=== PATIENT | female | born 1975 | race Caucasian/White ===

== ENCOUNTER 2016-10-16 17:32 | Emergency (ER) | payer MEDICAID ==
[~2016-10-16] VITALS: Ht 170.2 cm; Wt 79.4 kg
[2016-10-16 17:40] VITALS: BP 137/89
--- NOTE | 2016-10-16 17:50 | NUR ---
41/F BIB SELF C/O LACERATION LEFT 3RD FINGER WITH PAIN 8/10.HX; ANXIETY.RX; CLONAZEPAM 0.5MG HS.AAOX4 WITH EVEN AND STEADY GAIT; LUNGS CLEAR BL; HR EVEN AND REGULAR;PATIENT STATES PAIN OF 9/10 AT THIS TIME; PATIENT POSITIONED FOR COMFORT; HOB ELEVATED; BEDRAILS UP X2; BED DOWN. ER MD MADE AWARE OF PT STATUS.
--- NOTE | 2016-10-16 18:05 | NUR ---
AQUATICS MANAGER YAZIDISM APPLIED STERILE STRIP TP L MIDDLE FINGER. PT TOLERATED PROCEDUR WELL. Addendum: 10/16/16 at 1807 by [email or web address] PT STS ;DON'T WANT PAIN MED AT THIS TIME . PAIN 06/14
[2016-10-16] MEDS ORDERED: IBUPROFEN 800 MG TAB PO ONE (18:10)
--- NOTE | 2016-10-16 18:14 | NUR ---
SPLINT L MIDDLE FINGER BY ESTEFANÍA PARDO.
[2016-10-16 18:18] VITALS: BP 123/79
[2016-10-17] MEDS ORDERED: DRY DRESSING TP SCH (13:00)
== END 2016-10-16 18:16 | disposition home or self-care (01) ==
LOC: MED 17:32
DX: S61.213A Laceration without foreign body of left middle finger without damage to nail, initial encounter (principal); Z88.2 Allergy status to sulfonamides; W25.XXXA Contact with sharp glass, initial encounter; Y93.89 Activity, other specified; Y92.89 Other specified places as the place of occurrence of the external cause; Y99.8 Other external cause status
CPT/HCPCS: 90471; 90715; 99283

== ENCOUNTER 2017-03-17 22:29 | Emergency (ER) | payer MEDICAID ==
[~2017-03-17] VITALS: Ht 170.2 cm; Wt 81.6 kg
[2017-03-17 22:33] VITALS: BP 127/80
--- NOTE | 2017-03-17 22:43 | NUR ---
PT TAKEN TO BED 4
--- NOTE | 2017-03-17 22:54 | NUR ---
42 Y/O F W/C/O BURNING PAIN WITH URINATION, LOWER BACK PAIN, NAUSEA AND CHILLS X 5 DAYS. NO OTHER S/S OF DISTRESS NOTED. ER MD MADE AWARE.
--- NOTE | 2017-03-17 23:05 | NUR ---
Patient being evaluated by physician at bedside.
[2017-03-17] MEDS ORDERED: ONDANSETRON 4 MG ODT PO ONE (23:10)
[2017-03-17 23:32] VITALS: BP 133/93
--- NOTE | 2017-03-17 23:32 | NUR ---
Patient discharged with v/s stable. Written and verbal after care instructions given and explained. Patient alert, oriented and verbalized understanding of instructions. Ambulatory with steady gait. All questions addressed prior to discharge. ID band removed. Patient advised to follow up with PMD. Rx of CIPRO, ZOFRAN, MOTRIN, AND PYRIDIUM given. Patient educated on indication of medication including possible reaction and side effects. Opportunity to ask questions provided and answered.
== END 2017-03-17 23:32 | disposition home or self-care (01) ==
LOC: MED 22:29
DX: N39.0 Urinary tract infection, site not specified (principal); Z88.2 Allergy status to sulfonamides
CPT/HCPCS: 81002; 81025; 99283; S0119

== ENCOUNTER 2017-03-23 18:39 | Emergency (ER) | payer MEDICAID ==
[~2017-03-23] VITALS: Ht 170.2 cm; Wt 79.4 kg
[2017-03-23 18:42] VITALS: BP 135/73
[2017-03-23 20:38] LABS: APPEARANCE,URINE CLEAR (CLEAR); BILIRUBIN,URINE NEGATIVE (NEGATIVE); BLOOD, URINE NEGATIVE (NEGATIVE); COLOR,URINE YELLOW (YELLOW); LEUKOCYTE ESTERASE ,URINE NEGATIVE (NEGATIVE); NITRITE, URINE NEGATIVE (NEGATIVE); UGLUCOSE NEGATIVE (NEGATIVE)
[2017-03-23 20:48] LABS: ANION GAP 13.6 (8-16); CARBON DIOXIDE 25.6 mmol/L (21-32); CREATININE 0.8 mg/dL (0.6-1.3); POTASSIUM 4.2 mmol/L (3.5-5.1)
[2017-03-23 20:55] LABS: ALBUMIN 3.8 g/dL (3.4-5.0); BASOPHILS # (AUTO) 0.2 K/uL (0.00-0.22); EOSINOPHILS # (AUTO) 0.1 K/uL (0-0.4); HEMATOCRIT 42.8 % (36-48); HEMOGLOBIN 13.9 g/dL (12.0-16.0); LYMPHOCYTES # (AUTO) 2.6 K/uL (2.5-16.5); MEAN CORPUSCULAR HEMOGLOBIN 29 pg (27-31); MEAN CORPUSCULAR HGB CONC 33 g/dL (33-37); MEAN CORPUSCULAR VOLUME 91 fL (80-94); MONOCYTES # (AUTO) 0.8 K/uL (0.8-1.0); NEUTROPHILS # (AUTO) 6.1 K/uL (1.8-7.7); PLATELET COUNT (AUTO) 204 K/uL (140-450); RED BLOOD CELL COUNT(AUTO) 4.72 MIL/uL (4.20-5.40); RED CELL DISTRIBUTION WIDTH 12.4 % (11.6-13.7); TOTAL BILIRUBIN 0.4 mg/dL (0.0-1.0); WHITE BLOOD COUNT (AUTO) 9.8 K/uL (4.8-10.8)
[2017-03-23 22:00] VITALS: BP 129/85
== END 2017-03-23 22:00 | disposition home or self-care (01) ==
LOC: MED 18:39
DX: K59.00 Constipation, unspecified (principal); Z88.2 Allergy status to sulfonamides
CPT/HCPCS: 36415; 74176; 76705; 80053; 81003; 81025; 83690; 85025; 99285; Q0092

== ENCOUNTER 2017-07-17 21:00 | Emergency (ER) | payer MEDICAID ==
[~2017-07-17] VITALS: Ht 167.6 cm; Wt 83.6 kg
[2017-07-17 21:04] VITALS: BP 136/87
[2017-07-17] MEDS ORDERED: NACL 0.9% 1,000 ML IV ONE ×2 (21:56→22:00)
[2017-07-17] MEDS ORDERED: KETOROLAC 30 MG/ML VIAL IVP ONE (22:00)
[2017-07-17 22:13] LABS: BASOPHILS # (AUTO) 0.1 K/uL (0.00-0.22); BASOPHILS % (AUTO) 0.7 % (0.0-2.0); EOSINOPHILS # (AUTO) 0.4 K/uL (0-0.4); HEMOGLOBIN 13.4 g/dL (12.0-16.0); LYMPHOCYTES # (AUTO) 3.8 K/uL (2.5-16.5); LYMPHOCYTES % (AUTO) 32.6 % (20.5-51.1); MEAN CORPUSCULAR HEMOGLOBIN 30 pg (27-31); MEAN CORPUSCULAR HGB CONC 33 g/dL (33-37); MEAN CORPUSCULAR VOLUME 90.1 fL (80-94); MONOCYTES # (AUTO) 0.8 K/uL (0.8-1.0); MONOCYTES % (AUTO) 7.1 % (1.7-9.3); NEUTROPHILS # (AUTO) 6.6 K/uL (1.8-7.7); NEUTROPHILS % (AUTO) 56.6 % (42.2-75.2); PLATELET COUNT (AUTO) 207 K/uL (140-450); RED BLOOD CELL COUNT(AUTO) 4.55 MIL/uL (4.20-5.40); RED CELL DISTRIBUTION WIDTH 13.9 % (11.6-13.7); WHITE BLOOD COUNT (AUTO) 11.8 K/uL (4.8-10.8)
[2017-07-17 22:21] LABS: ANION GAP 10.6 (8-16); CARBON DIOXIDE 27.4 mmol/L (21-32); CREATININE 0.9 mg/dL (0.6-1.3)
[2017-07-17 22:28] LABS: ALBUMIN 3.7 g/dL (3.4-5.0); TOTAL BILIRUBIN 0.4 mg/dL (0.0-1.0)
[2017-07-17 22:32] LABS: PROTHROMBIN TIME 10.2 secs (10.8-13.4)
[2017-07-17 23:51] VITALS: BP 137/81
== END 2017-07-17 23:51 | disposition home or self-care (01) ==
LOC: MED 21:00
DX: S80.861A Insect bite (nonvenomous), right lower leg, initial encounter (principal); S80.862A Insect bite (nonvenomous), left lower leg, initial encounter; Z88.2 Allergy status to sulfonamides; W57.XXXA Bitten or stung by nonvenomous insect and other nonvenomous arthropods, initial encounter; Y93.89 Activity, other specified; Y99.8 Other external cause status; Y92.89 Other specified places as the place of occurrence of the external cause
CPT/HCPCS: 36415; 80053; 85025; 85610; 85730; 86790; 96374; 99284; J1885

== ENCOUNTER 2018-02-03 14:28 | Emergency (ER) | payer MEDICAID ==
[~2018-02-03] VITALS: Ht 167.6 cm; Wt 84.4 kg
[2018-02-03 14:38] VITALS: BP 126/71
--- NOTE | 2018-02-03 15:07 | NUR ---
Patient called, no answer.
--- NOTE | 2018-02-03 17:25 | NUR ---
patient called from lobby no answer patient is considered lwbs dr nolasco notified.
== END 2018-02-03 16:46 | disposition left against medical advice (07) ==
LOC: MED 14:28
DX: R51 Headache (principal); Z53.21 Procedure and treatment not carried out due to patient leaving prior to being seen by health care provider

== ENCOUNTER 2018-05-31 19:07 | Emergency (ER) | payer MEDICAID ==
[~2018-05-31] VITALS: Ht 170.2 cm; Wt 76.7 kg
[2018-05-31 19:15] VITALS: BP 141/74
--- NOTE | 2018-05-31 19:17 | NUR ---
TO LOBBY A/W BED, AMBULATORY
--- NOTE | 2018-05-31 20:43 | NUR ---
PT AMBULATED TO ER BED 2
--- NOTE | 2018-05-31 20:47 | NUR ---
PT PRESENTS TO ED WITH BILAT UPPER EXTREMITY PAIN 8/ X12 HRS. DENIES INJURY. NO DEFORMITIES NOTED. CMS INTACT BILAT UPPER EXTREMITIES. NO NUMBNESS/TINGLING. STATES PAIN IS THE WORST IT HAS BEEN OVER TWO WEEKS. VSS. A&OX4. POSITIONED IN BED FOR COMFORT. X1 SIDE RAIL UP. ER MD AWARE. CONTINUE TO MONITOR.
[2018-05-31 21:50] VITALS: BP 138/77
--- NOTE | 2018-05-31 21:50 | NUR ---
DISCHARGE PAPERS GIVEN TO PATIENT. 05/15 PAIN BUT TOLLERABLE. CMS INTACT BILAT UPPER EXTREMITIES. VSS. RX OF ROBAXIN AND TYLENOL GIVEN. SIDE EFFECTS EXPLAINED. INSTRUCTED TO F/U WITH PCP AND WHEN TO RETURN TO ED. VERBALIZED UNDERSTANDING OF DC INSTUCTIONS. ALL QUESTIONS ANSWERED.
== END 2018-05-31 21:50 | disposition home or self-care (01) ==
LOC: MED 19:07
DX: M54.12 Radiculopathy, cervical region (principal); Z88.2 Allergy status to sulfonamides
CPT/HCPCS: 72040; 81002; 81025; 99283

== ENCOUNTER 2018-11-13 14:22 | Emergency (ER) | payer MEDICAID ==
[~2018-11-13] VITALS: Ht 170.2 cm; Wt 75.7 kg
[2018-11-13 14:37] VITALS: BP 120/72
--- NOTE | 2018-11-13 14:55 | NUR ---
43/F BIB SELF C/O DIZZINESS/HEADACHE/BLURRED VISION SINCE YESTERDAY. NO MED HX. PATIENT STATES PAIN OF 8/10 AT THIS TIME; PATIENT POSITIONED FOR COMFORT; HOB ELEVATED; BEDRAILS UP X1; BED DOWN. ER MD MADE AWARE OF PT STATUS.
[2018-11-13] MEDS ORDERED: MORPHINE SULFATE 4 MG/ML SYR IVP ONE (15:30)
--- NOTE | 2018-11-13 16:03 | NUR ---
X RAY AT BEDSIDE
[2018-11-13 16:15] LABS: APPEARANCE,URINE CLEAR (CLEAR); BILIRUBIN,URINE NEGATIVE (NEGATIVE); BLOOD, URINE 3+ (NEGATIVE); COLOR,URINE YELLOW (YELLOW); LEUKOCYTE ESTERASE ,URINE NEGATIVE (NEGATIVE); NITRITE, URINE NEGATIVE (NEGATIVE); UGLUCOSE NEGATIVE (NEGATIVE)
[2018-11-13 16:23] LABS: BARBITURATE, URINE NEGATIVE ng/ml (NEG <=200); BENZODIAZEPINE, URINE NEGATIVE ng/mL (NEG <=200); CANNABINOID, URINE NEGATIVE ng/mL (NEG <=50); COCAINE, URINE NEGATIVE ng/mL (NEG <=300); OPIATE, URINE NEGATIVE ng/mL (NEG <=2000); PHENCYCLIDINE SCREEN,URINE NEGATIVE ng/mL (NEG <=25)
[2018-11-13 16:29] LABS: BASOPHILS % (AUTO) 0.5 % (0.0-2.0); HEMATOCRIT 40.2 % (36-48); HEMOGLOBIN 13.2 g/dL (12.0-16.0); LYMPHOCYTES # (AUTO) 0.9 K/uL (2.5-16.5); LYMPHOCYTES % (AUTO) 9.4 % (20.5-51.1); MEAN CORPUSCULAR HEMOGLOBIN 30 pg (27-31); MEAN CORPUSCULAR HGB CONC 33 g/dL (33-37); MEAN CORPUSCULAR VOLUME 92.1 fL (80-94); MONOCYTES # (AUTO) 0.1 K/uL (0.8-1.0); MONOCYTES % (AUTO) 1.3 % (1.7-9.3); NEUTROPHILS # (AUTO) 8.8 K/uL (1.8-7.7); NEUTROPHILS % (AUTO) 88.8 % (42.2-75.2); PLATELET COUNT (AUTO) 206 K/uL (140-450); RED BLOOD CELL COUNT(AUTO) 4.36 MIL/uL (4.20-5.40); RED CELL DISTRIBUTION WIDTH 13.3 % (11.6-13.7); WHITE BLOOD COUNT (AUTO) 9.9 K/uL (4.8-10.8)
[2018-11-13] MEDS ORDERED: MECLIZINE 25 MG TAB PO ONE (16:30)
[2018-11-13 16:57] LABS: RBC,URINE 0-5 /HPF (0-5); WBC,URINE NONE SEEN /HPF (0-5)
[2018-11-13 16:57] LABS: PROTHROMBIN TIME 9.4 secs (10.8-13.4)
[2018-11-13 17:17] LABS: ANION GAP 13.7 (8-16); CARBON DIOXIDE 26.2 mmol/L (21-32); CREATININE 0.7 mg/dL (0.6-1.3); POTASSIUM 4.9 mmol/L (3.5-5.1); TOTAL BILIRUBIN 0.4 mg/dL (0.0-1.0)
[2018-11-13 17:18] LABS: ALBUMIN 3.8 g/dL (3.4-5.0)
--- NOTE | 2018-11-13 17:38 | NUR ---
WALKED PT FROM ONE END OF THE ER TO THE OTHER. PT DEMONSTRATES ABILITY TO WALK COHERENTLY WITHOUT STUMBLING OR SWAYING. PT IS ABLE TO AMBULATE IN A STRAIGHT LINE. PT STATES SHE DOES NOT FEEL DIZZY WHILE AMBULATING AND IS ABLE TO AMBULATE WITHOUT ASSISTANCE. PT RETURNED TO ROOM AND PLACED IN BED.
[2018-11-13 18:32] VITALS: BP 119/70
--- NOTE | 2018-11-13 18:33 | NUR ---
Patient discharged with v/s stable. Written and verbal after care instructions given and explained. Patient alert, oriented and verbalized understanding of instructions. Ambulatory with steady gait. All questions addressed prior to discharge. ID band removed. Patient advised to follow up with PMD. Rx of IBUPRFEN & MECLIZINE given. Patient educated on indication of medication including possible reaction and side effects. Opportunity to ask questions provided and answered.
== END 2018-11-13 18:33 | disposition home or self-care (01) ==
LOC: MED 14:22
DX: R51 Headache (principal); R42 Dizziness and giddiness; R11.0 Nausea; Z88.2 Allergy status to sulfonamides
CPT/HCPCS: 36415; 70450; 71045; 80053; 80305; 81001; 81025; 84484; 85025; 85610; 85730; 86886; 86900; 86901; 93005; 99284; J8597; Q0092

== ENCOUNTER 2019-06-08 14:50 | Emergency (ER) | payer MEDICAID ==
[~2019-06-08] VITALS: Ht 170.2 cm; Wt 70.3 kg
[2019-06-08 14:54] VITALS: BP 141/78
--- NOTE | 2019-06-08 15:03 | NUR ---
44/F C/O HEADACHE X 5 DAYS ACCOMPANIED BY N/V, PHOTOPHOBIA, PHONOPHOBIA, TINNITUS. STATES SLIGHT DIZZINESS AND ALSO BLURRY VISION. PT STATES HE GETS HEADACHES OCCASIONALLY BUT HAS NEVER HAD ONE LIKE THIS BEFORE. HEADACHE HAS BEEN CONSTANT AND SEVERE, PAIN THROBBING. DENIES FEVER. LMP 2 WEEKS AGO. DENIES RELIEVING FACTORS. HX- DENIES Addendum: 06/08/19 at 1507 by RELL PT STATES NAUSEA BUT DENIES VOMITING. DENIES UNILATERAL WEAKNESS.
--- NOTE | 2019-06-08 15:17 | NUR ---
DR. BLANCO EVALUATING PT AT BEDSIDE
[2019-06-08] MEDS ORDERED: KETOROLAC 30 MG/ML VIAL IVP ONE (15:25)
[2019-06-08] MEDS ORDERED: NACL 0.9% 1,000 ML IV ONE (15:25)
[2019-06-08] MEDS ORDERED: PROCHLORPERAZINE 10 MG/2 ML VIAL IVP ONE (15:25)
--- NOTE | 2019-06-08 15:52 | NUR ---
PT AMB TO AND BACK FROM BATHROOM STEADY GAIT
--- NOTE | 2019-06-08 15:53 | NUR ---
COTTON FARMER AT BEDSIDE. PT TO CT SCAN VIA W/C.
--- NOTE | 2019-06-08 16:06 | NUR ---
PT BACK FROM CT SCAN VIA W/C. CONNECTED BACK TO IV NS.
--- NOTE | 2019-06-08 16:08 | NUR ---
PT STATES SOME RELIEF OF SARAH PAIN.
--- NOTE | 2019-06-08 17:15 | NUR ---
DR. BLANCO SPEAKING WITH PATIENT AT BEDSIDE
--- NOTE | 2019-06-08 17:30 | NUR ---
Patient discharged with v/s stable. Written and verbal after care instructions given and explained. Patient alert, oriented and verbalized understanding of instructions. Ambulatory with steady gait. All questions addressed prior to discharge. ID band removed. Patient advised to follow up with PMD. Rx of NAPROXEN, BENADRYL, REGLAN given. Patient educated on indication of medication including possible reaction and side effects. Opportunity to ask questions provided and answered.
[2019-06-08 17:31] VITALS: BP 103/55
== END 2019-06-08 17:30 | disposition home or self-care (01) ==
LOC: MED 14:50
DX: G43.909 Migraine, unspecified, not intractable, without status migrainosus (principal); R11.2 Nausea with vomiting, unspecified; Z88.2 Allergy status to sulfonamides
CPT/HCPCS: 70450; 81002; 81025; 96361; 96374; 96375; 99284; J0780; J1885; J7030

== ENCOUNTER 2019-07-06 20:09 | Emergency (ER) | payer MEDICAID ==
[~2019-07-06] VITALS: Ht 170.2 cm; Wt 72.6 kg
[2019-07-06 20:20] VITALS: BP 124/84
--- NOTE | 2019-07-06 20:22 | NUR ---
PT TAKEN TO BED 6
--- NOTE | 2019-07-06 20:30 | NUR ---
44 Y/O FEMALE PRESENTS TO ER WITH C/O THROAT, VAGINAL/ANAL THRUSH X 3 WEEKS. 8/10 PAIN. PT STATES HER PCP GAVE HER AUGMENTIN FOR CHRONIC SINUSITIS THAT PT BELIEVES TURNED INTO THRUSH, AND NOW INHABITS THROAT, AND VAGINAL/ANAL AREA. PT DENIES FEVER, NAUSEA, VOMITING, DIARRHEA, SOB, COUGH. R/R EQUAL AND UNLABORED. VSS. ORAL MUCOSA PINK, AND MOIST. NO WHITE PAPULES NOTED ON TONGUE/ORAL CAVITY. PT PLACED IN GOWN, SIDE RAIL X 1, BED IN LOW POSITION. WILL CONTINUE TO MONITOR. DENIES PMH ALLERGIES: SULFA
[2019-07-06 21:04] LABS: APPEARANCE,URINE HAZY (CLEAR); BILIRUBIN,URINE NEGATIVE (NEGATIVE); BLOOD, URINE NEGATIVE (NEGATIVE); COLOR,URINE YELLOW (YELLOW); LEUKOCYTE ESTERASE ,URINE NEGATIVE (NEGATIVE); NITRITE, URINE NEGATIVE (NEGATIVE); UGLUCOSE NEGATIVE (NEGATIVE)
[2019-07-06 21:05] LABS: BASOPHILS # (AUTO) 0.1 K/uL (0.00-0.22); EOSINOPHILS # (AUTO) 0.1 K/uL (0-0.4); EOSINOPHILS % (AUTO) 1.1 % (0.0-4.0); HEMATOCRIT 38.7 % (36-48); HEMOGLOBIN 12.8 g/dL (12.0-16.0); LYMPHOCYTES # (AUTO) 2.7 K/uL (2.5-16.5); LYMPHOCYTES % (AUTO) 20.7 % (20.5-51.1); MEAN CORPUSCULAR HEMOGLOBIN 30 pg (27-31); MEAN CORPUSCULAR HGB CONC 33 g/dL (33-37); MEAN CORPUSCULAR VOLUME 91.7 fL (80-94); MONOCYTES # (AUTO) 0.8 K/uL (0.8-1.0); MONOCYTES % (AUTO) 5.9 % (1.7-9.3); NEUTROPHILS # (AUTO) 9.2 K/uL (1.8-7.7); NEUTROPHILS % (AUTO) 71.3 % (42.2-75.2); PLATELET COUNT (AUTO) 235 K/uL (140-450); RED BLOOD CELL COUNT(AUTO) 4.22 MIL/uL (4.20-5.40); RED CELL DISTRIBUTION WIDTH 13.7 % (11.6-13.7); WHITE BLOOD COUNT (AUTO) 12.9 K/uL (4.8-10.8)
[2019-07-06 21:21] LABS: RBC,URINE 0-5 /HPF (0-5); WBC,URINE 0-5 /HPF (0-5)
[2019-07-06 21:22] LABS: ALBUMIN 3.4 g/dL (3.4-5.0); CREATININE 0.8 mg/dL (0.6-1.3); TOTAL BILIRUBIN 0.4 mg/dL (0.0-1.0)
[2019-07-06 21:29] LABS: ANION GAP 12.1 (8-16); CARBON DIOXIDE 29.1 mmol/L (21-32); POTASSIUM 4.2 mmol/L (3.5-5.1)
[2019-07-06 21:34] LABS: BARBITURATE, URINE NEGATIVE ng/ml (NEG <=200); BENZODIAZEPINE, URINE NEGATIVE ng/mL (NEG <=200); CANNABINOID, URINE NEGATIVE ng/mL (NEG <=50); COCAINE, URINE NEGATIVE ng/mL (NEG <=300); OPIATE, URINE NEGATIVE ng/mL (NEG <=2000); PHENCYCLIDINE SCREEN,URINE NEGATIVE ng/mL (NEG <=25)
--- NOTE | 2019-07-06 21:39 | NUR ---
Dr. Maya examining patient.
[2019-07-06 21:43] VITALS: BP 124/84
--- NOTE | 2019-07-06 21:44 | NUR ---
Patient discharged BY DR. CORREA with v/s stable. Written and verbal after care instructions given and explained. Patient verbalized understanding. Ambulatory with steady gait. All questions addressed BY DR. CORREA prior to discharge. Advised to follow up with PMD.
== END 2019-07-06 21:44 | disposition home or self-care (01) ==
LOC: MED 20:09
DX: R53.1 Weakness (principal); R30.0 Dysuria; N89.8 Other specified noninflammatory disorders of vagina; G43.909 Migraine, unspecified, not intractable, without status migrainosus; Z88.2 Allergy status to sulfonamides
CPT/HCPCS: 36415; 80053; 80305; 81001; 85025; 99283

== ENCOUNTER 2019-07-15 22:33 | Emergency (ER) | payer MEDICAID ==
[~2019-07-15] VITALS: Ht 165.1 cm; Wt 70.3 kg
[2019-07-15 22:44] VITALS: BP 141/77
--- NOTE | 2019-07-15 22:46 | NUR ---
PT TAKEN TO CHAIR A
--- NOTE | 2019-07-15 22:46 | NUR ---
44/F presents ambulatory to ED, c/o resolved tongue swelling at 1999 after taking rx diflucan PO. Pt took benadryl at 2100. No angioedema noted at this time. Pt awake and alert, skin normal color warm and dry, rr even and unlabored. Denies med hx
[2019-07-15] MEDS ORDERED: methylPREDNISolone SS 125 MG/2 ML VIAL IM ONE (23:00)
--- NOTE | 2019-07-15 23:07 | NUR ---
Patient discharged with v/s stable. Written and verbal after care instructions given and explained. Patient alert, oriented and verbalized understanding of instructions. Ambulatory with steady gait. All questions addressed prior to discharge. ID band removed. Patient advised to follow up with PMD. Rx of BENADRYL given. Patient educated on indication of medication including possible reaction and side effects. Opportunity to ask questions provided and answered.
== END 2019-07-15 23:07 | disposition home or self-care (01) ==
LOC: MED 22:33
DX: T78.40XA Allergy, unspecified, initial encounter (principal); K13.29 Other disturbances of oral epithelium, including tongue; G43.909 Migraine, unspecified, not intractable, without status migrainosus; Z88.2 Allergy status to sulfonamides; X58.XXXA Exposure to other specified factors, initial encounter
CPT/HCPCS: 96372; 99283; J2930

== ENCOUNTER 2019-09-25 17:05 | Emergency (ER) | payer MEDICAID ==
[~2019-09-25] VITALS: Ht 170.2 cm; Wt 68.0 kg
[2019-09-25 17:07] VITALS: BP 123/76
--- NOTE | 2019-09-25 17:13 | NUR ---
AMBULATED TO BED 5
--- NOTE | 2019-09-25 17:15 | NUR ---
C/O VAGINAL DISCOMFORT AND ORAL THRUSH X 3 DAYS AGO. PT REPORTS SHE IS CURRENTLY TAKING ANTIBIOTICS FOR AN EAR INFECTION WHEN THE S/S DEVELOPED. DENIES VAGINAL DISCHARGE. PT STATES SHE JUST "FEELS" THAT SHE HAS AYEAST INFECTION DUE TO HISTORY. PT ALERT AND AWAKE. VS STABLE. AMBULATORY. PMH- YEAST INFECTION HISTORY
--- NOTE | 2019-09-25 17:25 | NUR ---
dr etienne at bedside evaluating pt.
--- NOTE | 2019-09-25 17:40 | NUR ---
lab at bedside.
[2019-09-25 17:57] LABS: BASOPHILS # (AUTO) 0.1 K/uL (0.00-0.22); BASOPHILS % (AUTO) 0.5 % (0.0-2.0); EOSINOPHILS # (AUTO) 0.1 K/uL (0-0.4); EOSINOPHILS % (AUTO) 1.2 % (0.0-4.0); HEMATOCRIT 39.8 % (36-48); HEMOGLOBIN 12.9 g/dL (12.0-16.0); LYMPHOCYTES % (AUTO) 27.4 % (20.5-51.1); MEAN CORPUSCULAR HEMOGLOBIN 30 pg (27-31); MEAN CORPUSCULAR HGB CONC 33 g/dL (33-37); MEAN CORPUSCULAR VOLUME 91.8 fL (80-94); MONOCYTES # (AUTO) 0.7 K/uL (0.8-1.0); NEUTROPHILS # (AUTO) 7.1 K/uL (1.8-7.7); NEUTROPHILS % (AUTO) 64.9 % (42.2-75.2); PLATELET COUNT (AUTO) 210 K/uL (140-450); RED BLOOD CELL COUNT(AUTO) 4.33 MIL/uL (4.20-5.40); RED CELL DISTRIBUTION WIDTH 13.6 % (11.6-13.7); WHITE BLOOD COUNT (AUTO) 10.9 K/uL (4.8-10.8)
--- NOTE | 2019-09-25 18:11 | NUR ---
pt comfortable in bed side rails up x1 and lock at lowest position.
[2019-09-25 18:28] VITALS: BP 123/76
--- NOTE | 2019-09-25 18:29 | NUR ---
Patient discharged with v/s stable. Written and verbal after care instructions given and explained regarding vaginitis. Patient alert, oriented and verbalized understanding of instructions. Ambulatory with steady gait. All questions addressed prior to discharge. ID band removed. Patient advised to follow up with PMD. Rx of fluconazole and ofloxacin drops given. Patient educated on indication of medication including possible reaction and side effects. Opportunity to ask questions provided and answered.
== END 2019-09-25 18:29 | disposition home or self-care (01) ==
LOC: MED 17:05
DX: B37.9 Candidiasis, unspecified (principal); H60.92 Unspecified otitis externa, left ear; G43.909 Migraine, unspecified, not intractable, without status migrainosus; Z88.2 Allergy status to sulfonamides
CPT/HCPCS: 36415; 81002; 81025; 85025; 99283

== ENCOUNTER 2019-10-13 18:34 | Emergency (ER) | payer MEDICAID ==
[~2019-10-13] VITALS: Ht 170.2 cm; Wt 67.6 kg
[2019-10-13 19:08] VITALS: BP 140/80
--- NOTE | 2019-10-13 19:32 | NUR ---
PT AMBULATED TO BED 5 WITH STEADY GAIT
--- NOTE | 2019-10-13 19:34 | NUR ---
PT PROVIDING URINE SAMPLE
--- NOTE | 2019-10-13 19:54 | NUR ---
URINE DIP AND PREG DONE
[2019-10-13 20:03] LABS: BASOPHILS # (AUTO) 0.1 K/uL (0.00-0.22); BASOPHILS % (AUTO) 0.6 % (0.0-2.0); EOSINOPHILS # (AUTO) 0.1 K/uL (0-0.4); EOSINOPHILS % (AUTO) 0.8 % (0.0-4.0); HEMOGLOBIN 13.1 g/dL (12.0-16.0); LYMPHOCYTES # (AUTO) 2.3 K/uL (2.5-16.5); LYMPHOCYTES % (AUTO) 27.9 % (20.5-51.1); MEAN CORPUSCULAR HEMOGLOBIN 31 pg (27-31); MEAN CORPUSCULAR HGB CONC 34 g/dL (33-37); MEAN CORPUSCULAR VOLUME 92.3 fL (80-94); MONOCYTES # (AUTO) 0.4 K/uL (0.8-1.0); MONOCYTES % (AUTO) 5.3 % (1.7-9.3); NEUTROPHILS # (AUTO) 5.3 K/uL (1.8-7.7); NEUTROPHILS % (AUTO) 65.4 % (42.2-75.2); PLATELET COUNT (AUTO) 180 K/uL (140-450); RED BLOOD CELL COUNT(AUTO) 4.22 MIL/uL (4.20-5.40); RED CELL DISTRIBUTION WIDTH 13.6 % (11.6-13.7); WHITE BLOOD COUNT (AUTO) 8.1 K/uL (4.8-10.8)
[2019-10-13 20:12] LABS: ALBUMIN 3.5 g/dL (3.4-5.0); ANION GAP 11.6 (8-16); CARBON DIOXIDE 29.1 mmol/L (21-32); CREATININE 0.8 mg/dL (0.6-1.3); POTASSIUM 4.7 mmol/L (3.5-5.1); TOTAL BILIRUBIN 0.5 mg/dL (0.0-1.0)
[2019-10-13 20:14] LABS: APPEARANCE,URINE HAZY (CLEAR); BILIRUBIN,URINE NEGATIVE (NEGATIVE); BLOOD, URINE 3+ (NEGATIVE); COLOR,URINE YELLOW (YELLOW); LEUKOCYTE ESTERASE ,URINE NEGATIVE (NEGATIVE); NITRITE, URINE NEGATIVE (NEGATIVE); UGLUCOSE NEGATIVE (NEGATIVE)
[2019-10-13 20:22] LABS: RBC,URINE 11-20 (MOD) /HPF (0-5)
--- NOTE | 2019-10-13 20:25 | NUR ---
RAD AT BEDSIDE.
--- NOTE | 2019-10-13 21:10 | NUR ---
44 Y/O F PRESENTS TO ED C/O RUQ PAIN RADIATING TO RIGHT MIDDLE BACK X 2 DAYS ACCOMPANIED WITH RASH. PT DESCRIBES PAIN TO BE SHARP, INTERMITTENT, RATING AT 8/10. PT ADMITS TO NAUSEA BUT DENIES ANY VOMIT/ DIARRHEA. PT STATES THAT SHE'S BEEN TAKING FLUCONAZOLE IN TREATMENT FOR A YEAST INFECTION AND NOTICED THAT SHE'S BEEN EXPERIENCING RASH AND PAIN IN THE RUQ. BED LOCKED AND IN LOWEST POSITION, SIDE RAIL UP X1. WILL CONTINUE TO MONITOR. MHX: DENIES ALLERGIES: SULFA
--- NOTE | 2019-10-13 21:55 | NUR ---
PT RESTING IN BED, NO DISTRESS NOTED. BED LOCKED AND IN LOWEST POSITION, SIDE RAIL UPX1. WILL CONTINUE TO MONITOR.
[2019-10-13 22:24] VITALS: BP 140/80
--- NOTE | 2019-10-13 22:24 | NUR ---
DPatient discharged with v/s stable. Written and verbal after care instructions given and explained. Patient verbalized understanding. Ambulatory with steady gait. All questions addressed prior to discharge. Advised to follow up with PMD.
== END 2019-10-13 22:24 | disposition home or self-care (01) ==
LOC: MED 18:34
DX: R10.11 Right upper quadrant pain (principal); R11.0 Nausea; Z88.2 Allergy status to sulfonamides
CPT/HCPCS: 36415; 71045; 80053; 81001; 81025; 83690; 84484; 85025; 87086; 93005; 99285

== ENCOUNTER 2020-04-18 19:43 | Emergency (ER) | payer MEDICAID ==
[~2020-04-18] VITALS: Ht 167.6 cm; Wt 65.3 kg
[2020-04-18 19:49] VITALS: BP 110/71
--- NOTE | 2020-04-18 21:06 | NUR ---
AMBULATED TO ER BED 5
[2020-04-18] MEDS ORDERED: NACL 0.9% 1,000 ML IV ONE (21:40)
[2020-04-18] MEDS ORDERED: DICYCLOMINE HCL LIQUID 20 MG, ALUMINUM HYD/MAG/SIMETHICONE 30 ML, LIDOCAINE VISCOUS 2% ... PO ONE ×3 (21:40)
[2020-04-18] MEDS ORDERED: FAMOTIDINE 20 MG/2 ML VIAL IVP ONE (21:40)
--- NOTE | 2020-04-18 21:48 | NUR ---
AMBULATED TO BR FOR UA
--- NOTE | 2020-04-18 21:55 | NUR ---
BLOOD DRAWN VIA IV START AND GIVEN TO FACILITIES PAINTER
--- NOTE | 2020-04-18 21:55 | NUR ---
RECEIVED PT IN ROOM 5 WITH C/O EPIGASTRIC PAIN X 5 DAYS, WORSE TODAY. MUCH FACIAL GRIMACING IS NOTED
[2020-04-18] MEDS ORDERED: DICYCLOMINE HCL LIQUID 10 MG/5 ML UDC ONE (21:59)
[2020-04-18] MEDS ORDERED: ALUMINUM HYD/MAG/SIMETHICONE 30 ML UDC ONE (21:59)
[2020-04-18] MEDS ORDERED: LIDOCAINE VISCOUS 2% 20 ML UDC ONE (21:59)
[2020-04-18 22:04] LABS: BASOPHILS # (AUTO) 0.1 K/uL (0.00-0.22); BASOPHILS % (AUTO) 0.7 % (0.0-2.0); EOSINOPHILS # (AUTO) 0.3 K/uL (0-0.4); EOSINOPHILS % (AUTO) 3.2 % (0.0-4.0); HEMATOCRIT 38.6 % (36-48); HEMOGLOBIN 12.8 g/dL (12.0-16.0); LYMPHOCYTES % (AUTO) 33.2 % (20.5-51.1); MEAN CORPUSCULAR HEMOGLOBIN 31 pg (27-31); MEAN CORPUSCULAR HGB CONC 33 g/dL (33-37); MEAN CORPUSCULAR VOLUME 93.3 fL (80-94); MONOCYTES # (AUTO) 0.7 K/uL (0.8-1.0); NEUTROPHILS # (AUTO) 4.9 K/uL (1.8-7.7); NEUTROPHILS % (AUTO) 54.9 % (42.2-75.2); PLATELET COUNT (AUTO) 192 K/uL (140-450); RED BLOOD CELL COUNT(AUTO) 4.14 MIL/uL (4.20-5.40); RED CELL DISTRIBUTION WIDTH 12.6 % (11.6-13.7)
[2020-04-18 22:20] LABS: APPEARANCE,URINE CLEAR (CLEAR); BILIRUBIN,URINE NEGATIVE (NEGATIVE); BLOOD, URINE NEGATIVE (NEGATIVE); COLOR,URINE YELLOW (YELLOW); LEUKOCYTE ESTERASE ,URINE NEGATIVE (NEGATIVE); NITRITE, URINE NEGATIVE (NEGATIVE); PH,URINE 8.5 (5.0-9.0); UGLUCOSE NEGATIVE (NEGATIVE)
[2020-04-18 22:36] LABS: ALBUMIN 3.8 g/dL (3.4-5.0); ANION GAP 9.6 (8-16); CARBON DIOXIDE 31.2 mmol/L (21-32); CREATININE 0.8 mg/dL (0.6-1.3); POTASSIUM 3.8 mmol/L (3.5-5.1); TOTAL BILIRUBIN 0.5 mg/dL (0.0-1.0)
--- NOTE | 2020-04-18 23:30 | NUR ---
RETURNED FROM CT
--- NOTE | 2020-04-19 | NUR ---
RESTING MORE COMFORTABLY AMBULATED TO BR WITH STEADY GAIT
[2020-04-19] MEDS ORDERED: KETOROLAC 30 MG/ML VIAL IVP ONE (00:05)
[2020-04-19] MEDS ORDERED: LIDO100S PO (01:15)
[2020-04-19] MEDS ORDERED: MAG-27 PO (01:15)
[2020-04-19 01:28] VITALS: BP 110/71
--- NOTE | 2020-04-19 01:28 | NUR ---
Patient discharged with v/s stable. Written and verbal after care instructions given and explained. Patient alert, oriented and verbalized understanding of instructions. Ambulatory with steady gait. All questions addressed prior to discharge. ID band removed. Patient advised to follow up with PMD. Rx of VISCOUS LIDOCAINE, [place] given. Patient educated on indication of medication including possible reaction and side effects. Opportunity to ask questions provided and answered.
== END 2020-04-19 01:28 | disposition home or self-care (01) ==
LOC: MED 19:43
DX: R10.13 Epigastric pain (principal); K21.9 Gastro-esophageal reflux disease without esophagitis; Z88.2 Allergy status to sulfonamides
CPT/HCPCS: 36415; 74176; 80053; 81003; 82150; 83690; 84703; 85025; 96361; 96374; 96375; 99284; J1885; J3490

== ENCOUNTER 2020-10-09 16:38 | Emergency (ER) | payer MEDICAID ==
[~2020-10-09] VITALS: Ht 170.2 cm; Wt 65.8 kg
[~2020-10-09 16:38] MED LIST: LIDO100S PO; MAG-27 PO
[2020-10-09 16:48] VITALS: BP 141/87
--- NOTE | 2020-10-09 16:53 | NUR ---
PT TAKEN TO ER BED 11.
--- NOTE | 2020-10-09 17:09 | NUR ---
45 Y/O FEMALE C/O RIGHT INDEX FINGER PAIN 610 DESCRIBES ACHING WITH MOVEMENT S/P CAT BITE X 12 DAYS. NO ACTIVE BLEEDING NOTED, DENIES N/V, DENIES FEVER/CHILLS. DENIES PMH ALLERGIES: SULFA
--- NOTE | 2020-10-09 17:11 | NUR ---
ANU MCDONALD AT PT BEDSIDE FOR FURTHER EVALUATION.
[2020-10-09] MEDS ORDERED: IBUP-2230 PO (17:12)
[2020-10-09 17:20] VITALS: BP 136/84
--- NOTE | 2020-10-09 17:20 | NUR ---
Patient discharged with v/s stable. Written and verbal after care instructions given ANIMAL BITE and explained. Patient alert, oriented and verbalized understanding of instructions. Ambulatory with steady gait. All questions addressed prior to discharge. ID band removed. Patient advised to follow up with PMD. Rx of IBUPROFEN 400MG PO Q6H PRN PAIN/INFLAMMATION given. Patient educated on indication of medication including possible reaction and side effects. Opportunity to ask questions provided and answered.
== END 2020-10-09 17:20 | disposition home or self-care (01) ==
LOC: MED 16:38
DX: M79.644 Pain in right finger(s) (principal); K21.9 Gastro-esophageal reflux disease without esophagitis; Z79.899 Other long term (current) drug therapy; Z88.2 Allergy status to sulfonamides; W55.01XA Bitten by cat, initial encounter; Y93.89 Activity, other specified; Y92.89 Other specified places as the place of occurrence of the external cause; Y99.8 Other external cause status
CPT/HCPCS: 99282

== ENCOUNTER 2020-10-10 22:27 | Emergency (ER) | payer MEDICAID ==
[~2020-10-10] VITALS: Ht 170.2 cm; Wt 65.8 kg
[~2020-10-10 22:27] MED LIST changes: +IBUP-2230 PO
[2020-10-10 22:35] VITALS: BP 124/78
--- NOTE | 2020-10-10 22:38 | NUR ---
TO LOBBY A/W BED AMBULATORY
--- NOTE | 2020-10-10 22:54 | NUR ---
2247 PER ER ADMIT STAFF - PATIENT WENT TO ER COUNTER AND SAID SHE WAS LEAVING
--- NOTE | 2020-10-10 23:35 | NUR ---
PT LWBS AT 0025
== END 2020-10-10 22:47 | disposition left against medical advice (07) ==
LOC: MED 22:27
DX: R25.1 Tremor, unspecified (principal); Z53.21 Procedure and treatment not carried out due to patient leaving prior to being seen by health care provider
CPT/HCPCS: 93005

== ENCOUNTER 2020-12-19 15:59 | Emergency (ER) | payer MEDICAID ==
[~2020-12-19] VITALS: Ht 170.2 cm; Wt 65.8 kg
[2020-12-19 16:42] VITALS: BP 125/80
--- NOTE | 2020-12-19 18:23 | NUR ---
45 Y FEMALE WITH C/O 10/10 HEADACHE THAT OCCURED X2 DAYS AGO. PT STATED SHE IS ALSO EXPERICNING NAUSEA AND BLURRED VISION DUE TO THE SARAH. PT STATED "SHE FELT A POP IN HER HEAD BEFORE THE HEADACHE STARTED TO OCCUR." PT DENIES ANY SOB, CHEST PAIN, FEVER/CHILLS AT THIS TIME. VA: RIGHT EYE 20/200, LEFT EYE 20/200, BOTH EYE 20/200 PMH: ANXIETY
[2020-12-19] MEDS ORDERED: MECLIZINE 25 MG TAB PO ONE (18:50)
[2020-12-19] MEDS ORDERED: NACL 0.9% 1,000 ML IV ONE (19:00)
[2020-12-19] MEDS ORDERED: ACETAMINOPHEN 325 MG TAB PO ONE (19:00)
[2020-12-19] MEDS ORDERED: ONDANSETRON 4 MG/2 ML VIAL IVP ONE (19:00)
--- NOTE | 2020-12-19 19:10 | NUR ---
ERMD ORDERED IV AND IVF WITH U-PREG. #20 TO [facility] 1000ML BOLUS PER ORDERS UP. PT AMB BATHROOM WITH SLOW STEADY GAIT. C/O OF DIZZINESS. SPOTTING D/T PERIOD STARTING.
--- NOTE | 2020-12-19 19:18 | NUR ---
Pt report given to CINDI STOREY. Transfer of care at this time.
--- NOTE | 2020-12-19 19:30 | NUR ---
COTINUES WITH SAME SYMPTOMS AND NO CHANGES NOTED. PENDING MEDS AND DISPO
--- NOTE | 2020-12-19 21:00 | NUR ---
MEDICATED PER ORDERS. IVF COMPLETED. PT FEELING BETTER DECREASED DIZZY PER PT. PENDING DISPO
[2020-12-19 21:01] LABS: ANION GAP 13.5 (8-16); CARBON DIOXIDE 26.1 mmol/L (21-32); CREATININE 0.7 mg/dL (0.6-1.3); POTASSIUM 3.6 mmol/L (3.5-5.1)
[2020-12-19] MEDS ORDERED: MECLIZINE 25 MG TAB ONE (21:08)
[2020-12-19] MEDS ORDERED: ACETAMINOPHEN 325 MG TAB ONE (21:09)
[2020-12-19 21:23] LABS: BASOPHILS % (AUTO) 0.4 % (0.0-2.0); EOSINOPHILS # (AUTO) 0.1 K/uL (0-0.4); EOSINOPHILS % (AUTO) 1.7 % (0.0-4.0); HEMATOCRIT 38.6 % (36-48); HEMOGLOBIN 12.8 g/dL (12.0-16.0); LYMPHOCYTES # (AUTO) 2.4 K/uL (2.5-16.5); LYMPHOCYTES % (AUTO) 28.7 % (20.5-51.1); MEAN CORPUSCULAR HEMOGLOBIN 30 pg (27-31); MEAN CORPUSCULAR HGB CONC 33 g/dL (33-37); MEAN CORPUSCULAR VOLUME 91.8 fL (80-94); MONOCYTES # (AUTO) 0.5 K/uL (0.8-1.0); NEUTROPHILS # (AUTO) 5.3 K/uL (1.8-7.7); NEUTROPHILS % (AUTO) 63.2 % (42.2-75.2); PLATELET COUNT (AUTO) 202 K/uL (140-450); RED CELL DISTRIBUTION WIDTH 13.3 % (11.6-13.7); WHITE BLOOD COUNT (AUTO) 8.4 K/uL (4.8-10.8)
[2020-12-19] MEDS ORDERED: ONDA-188 SL (21:40)
[2020-12-19] MEDS ORDERED: AMOX-999 PO (21:41)
[2020-12-19 22:00] VITALS: BP 110/60
--- NOTE | 2020-12-19 22:00 | NUR ---
Patient discharged with v/s stable. Written and verbal after care instructions given and explained. Patient alert, oriented and verbalized understanding of instructions. Ambulatory with steady gait. All questions addressed prior to discharge. ID band removed. Patient advised to follow up with PMD. Rx of AUGMENTIN, ZOFRAN given. Patient educated on indication of medication including possible reaction and side effects. Opportunity to ask questions provided and answered.
== END 2020-12-19 22:00 | disposition home or self-care (01) ==
LOC: MED 15:59
DX: R42 Dizziness and giddiness (principal); J32.9 Chronic sinusitis, unspecified; K21.9 Gastro-esophageal reflux disease without esophagitis; Z79.899 Other long term (current) drug therapy; Z88.2 Allergy status to sulfonamides
CPT/HCPCS: 36415; 70450; 80048; 81002; 81025; 84703; 85025; 96361; 96374; 99285; J7030; J8597

== ENCOUNTER 2021-01-02 16:28 | Emergency (ER) | payer MEDICAID ==
[~2021-01-02] VITALS: Ht 170.2 cm; Wt 68.0 kg
[~2021-01-02 16:28] MED LIST changes: +AMOX-999 PO; +ONDA-188 SL
[2021-01-02 16:40] VITALS: BP 138/77
[2021-01-02] MEDS ORDERED: KETOROLAC 60 MG/2 ML VIAL IM ONE (16:55)
--- NOTE | 2021-01-02 17:01 | NUR ---
DR. CAMERON BEDSIDE EVALUATING PT
--- NOTE | 2021-01-02 17:06 | NUR ---
45 Y/O FEMALE C/O HEADACHE 08/14 DESCRIBES THROBBING NON-RADIATING, RUNNY NOSE, DIZZINESS X 2 DAYS. PT SEEN HERE FOR SINUSITIS 12/19/20. DENIES FEVER/CHILLS. DENIES N/V/S. PMH: GERD ALLERGIES: SULFA
--- NOTE | 2021-01-02 18:39 | NUR ---
PT RESTING, VISIBLE EQUAL RISE AND FALL OF CHEST, VSS, WILL CONTINUE TO MONITOR.
[2021-01-02] MEDS ORDERED: PSEU120T22 PO (19:00)
[2021-01-02] MEDS ORDERED: ACET-8386 PO (19:00)
[2021-01-02 19:05] VITALS: BP 140/79
--- NOTE | 2021-01-02 19:06 | NUR ---
Patient discharged with v/s stable. Written and verbal after care instructions given and explained. Patient alert, oriented and verbalized understanding of instructions. Ambulatory with steady gait. All questions addressed prior to discharge. ID band removed. Patient advised to follow up with PMD. Rx of HYDROCODONE/ACETAMINOPHEN, PSEUDOEPHEDRINE HCI given.Opportunity to ask questions provided and answered.
== END 2021-01-02 19:05 | disposition home or self-care (01) ==
LOC: MED 16:28
DX: R51.9 Headache, unspecified (principal); J32.9 Chronic sinusitis, unspecified; Z79.2 Long term (current) use of antibiotics; Z79.899 Other long term (current) drug therapy; Z79.1 Long term (current) use of non-steroidal anti-inflammatories (NSAID); Z88.2 Allergy status to sulfonamides
CPT/HCPCS: 81002; 81025; 96372; 99283; J1885

== ENCOUNTER 2023-06-23 22:06 | Emergency (ER) | payer MEDICAID ==
[~2023-06-23] VITALS: Ht 170.2 cm; Wt 77.1 kg
[~2023-06-23 22:06] MED LIST changes: +ACET-8905 PO; +PSEU120T22 PO
[2023-06-23 22:07] VITALS: BP 128/79; PULSE 86; RESP 16; TEMP 98.7; O2SAT 99
[2023-06-23 22:44] LABS: APPEARANCE,URINE CLEAR (CLEAR); BILIRUBIN,URINE NEGATIVE (NEGATIVE); BLOOD, URINE NEGATIVE (NEGATIVE); COLOR,URINE YELLOW (YELLOW); LEUKOCYTE ESTERASE ,URINE NEGATIVE (NEGATIVE); NITRITE, URINE NEGATIVE (NEGATIVE); PH,URINE 6.5 (5.0-9.0); PROTEIN,URINE NEGATIVE (NEGATIVE); UGLUCOSE NEGATIVE (NEGATIVE); UROBILINOGEN,URINE 0.2 EU/dL (0.2 - 1)
[2023-06-23 23:15] LABS: BASOPHILS # (AUTO) 0.1 K/uL (0.00-0.22); BASOPHILS % (AUTO) 0.7 % (0.0-2.0); EOSINOPHILS # (AUTO) 0.2 K/uL (0-0.4); EOSINOPHILS % (AUTO) 1.8 % (0.0-4.0); HEMATOCRIT 36.4 % (36-48); HEMOGLOBIN 12.4 g/dL (12.0-16.0); LYMPHOCYTES # (AUTO) 3.3 K/uL (2.5-16.5); LYMPHOCYTES % (AUTO) 37.9 % (20.5-51.1); MEAN CORPUSCULAR HEMOGLOBIN 31 pg (27-31); MEAN CORPUSCULAR HGB CONC 34 g/dL (33-37); MEAN CORPUSCULAR VOLUME 89.8 fL (80-94); MONOCYTES # (AUTO) 0.8 K/uL (0.8-1.0); MONOCYTES % (AUTO) 8.7 % (1.7-9.3); NEUTROPHILS # (AUTO) 4.4 K/uL (1.8-7.7); NEUTROPHILS % (AUTO) 50.9 % (42.2-75.2); PLATELET COUNT (AUTO) 207 K/uL (140-450); RED BLOOD CELL COUNT(AUTO) 4.05 MIL/uL (4.20-5.40); RED CELL DISTRIBUTION WIDTH 14.4 % (11.6-13.7); WHITE BLOOD COUNT (AUTO) 8.7 K/uL (4.8-10.8)
[2023-06-23] MEDS: KETOROLAC 30 MG/ML VIAL IVP ONE (23:15)
[2023-06-23 23:18] VITALS: O2SAT 98
[2023-06-23] MEDS: ONDANSETRON 4 MG/2 ML VIAL IVP ONE (23:19)
[2023-06-23] MEDS: NACL 0.9% 1,000 ML IV SCH (23:20)
[2023-06-23 23:23] LABS: ANION GAP 11.1 (8-16); CALCIUM 8.6 mg/dL (8.5-10.1); CARBON DIOXIDE 29.9 mmol/L (21-32); CREATININE 0.8 mg/dL (0.6-1.3)
[2023-06-23 23:29] LABS: ALBUMIN 3.3 g/dL (3.4-5.0); BILIRUBIN,DIRECT 0.1 mg/dL (0.0-0.3); TOTAL BILIRUBIN 0.3 mg/dL (0.0-1.0); TOTAL PROTEIN, SERUM 7.1 g/dL (6.4-8.2)
[2023-06-24] MEDS ORDERED: CIPR500T4 PO (02:04)
[2023-06-24] MEDS ORDERED: MELO-174 PO (02:04)
== END 2023-06-24 02:15 | disposition home or self-care (01) ==
LOC: MED 22:06
DX: N39.0 Urinary tract infection, site not specified (principal); Z79.1 Long term (current) use of non-steroidal anti-inflammatories (NSAID); Z79.2 Long term (current) use of antibiotics; Z79.899 Other long term (current) drug therapy; Z88.2 Allergy status to sulfonamides
CPT/HCPCS: 36415; 74176; 80048; 80076; 81003; 81025; 83690; 85025; 96361; 96374; 96375; 99285; J1885; J2405; J7030

== ENCOUNTER 2023-10-12 21:42 | Emergency (ER) | payer MEDICAID ==
[~2023-10-12 21:42] MED LIST changes: +CIPR500T4 PO; +MELO-174 PO
--- NOTE | 2023-10-12 22:05 | NUR ---
CALLED PT X 3 NO ANSWER.
--- NOTE | 2023-10-12 22:16 | NUR ---
CALLED PT X 3 NO ANSWER.
--- NOTE | 2023-10-12 22:53 | NUR ---
PATIENT LEFT WITHOUT BEING SEEN BY DR. CORREA. NO FURTHER CARE PROVIDED FOR PATIENT.
== END 2023-10-12 22:05 | disposition left against medical advice (07) ==
LOC: MED 21:42
DX: N39.0 Urinary tract infection, site not specified (principal); Z53.21 Procedure and treatment not carried out due to patient leaving prior to being seen by health care provider